=== PATIENT | female | born 1935 | race Caucasian/White ===

== ENCOUNTER → 2016-10-17 | Outpatient (CLI) | payer MEDICARE | END | disposition home or self-care (01) | LOC: PCVCCLINIC 14:24 | PROVIDERS: ATTEND Internal Medicine Cardiovascular Disease | DX: J90 Pleural effusion, not elsewhere classified (principal); K21.9 Gastro-esophageal reflux disease without esophagitis; R07.9 Chest pain, unspecified | CPT/HCPCS: 93005; G0463 ==

== ENCOUNTER → 2016-10-31 | Outpatient (CLI) | payer MEDICARE ==
[~2016-10-31] MED LIST: REGADENOSON 0.4 MG/5 ML DISP.SYRIN. IV ONE
== END | disposition home or self-care (01) ==
LOC: PCVCIMAG 08:27
PROVIDERS: ATTEND Internal Medicine Cardiovascular Disease
DX: I08.1 Rheumatic disorders of both mitral and tricuspid valves (principal)
CPT/HCPCS: 78452; 93017; 93306; A9500; J2785

== ENCOUNTER → 2018-09-08 | Outpatient (CLI) | payer MEDICARE | END | disposition home or self-care (01) | LOC: PCVCCLINIC 13:39 | PROVIDERS: ATTEND Internal Medicine Cardiovascular Disease | DX: I10 Essential (primary) hypertension (principal); R09.89 Other specified symptoms and signs involving the circulatory and respiratory systems; R60.9 Edema, unspecified; R42 Dizziness and giddiness; K21.9 Gastro-esophageal reflux disease without esophagitis; Z87.891 Personal history of nicotine dependence | CPT/HCPCS: 93005; G0463 ==

== ENCOUNTER → 2018-09-14 | Outpatient (CLI) | payer MEDICARE ==
--- NOTE | 2018-09-14 15:56 | PCVCIMAG ---
APPROVED REPORT Laterality: Bilateral Indications Bruit Doppler Spectral Velocity Analysis PSV / EDVPSV / EDV ECA (R) 120 / 16 cm/sECA (L) 65 / 8 cm/s dICA (R) 60 / 19 cm/sdICA (L) 60 / 19 cm/s Mac (R) 84 / 25 cm/smICA (L) 64 / 20 cm/s pICA (R) 81 / 20 cm/spICA (L) 97 / 19 cm/s Bulb (R) 86 / 20 cm/sBulb (L) 93 / 19 cm/s dCCA (R) 99 / 20 cm/sdCCA (L) 99 / 25 cm/s mCCA (R) 107 / 23 cm/smCCA (L) 108 / 24 cm/s Vert (R) 45 / 9 cm/sVert (L) 64 / 16 cm/s ICA/CCA 0.85ICA/CCA 0.98 Findings The right carotid bulb has minimal plaque. The right proximal internal carotid artery shows no significant stenosis. The right common carotid artery shows no significant stenosis. The right external carotid artery shows no significant stenosis. The left carotid bulb has mild plaque. The left proximal internal carotid artery shows no significant stenosis. The left common carotid artery shows no significant stenosis. The left external carotid artery shows no significant stenosis. Conclusion 1. No significant stenosis involving either carotid artery 2. Antegrade vertebral flow
--- NOTE | 2018-09-14 16:12 | PCVCIMAG ---
APPROVED REPORT Study performed: 09/14/2018 15:38:12 EXAM: Comprehensive 2D, Doppler, and color-flow Echocardiogram Patient Location: Echo lab Status: routine BSA: 1.69 HR: 74 bpmBP: 130/82 mmHg Rhythm: NSR Other Information Study Quality: Adequate Risk Factors: Cardiac Risk Factors: HTN Indications Dizziness and Vertigo mitral regurgitation 2D Dimensions IVSd: 10.07 (7-11mm) LVDd: 43.01 mm PWd: 8.97 (7-11mm) LVDs: 31.76 (25-40mm) Left Atrium: 43.08 (27-40mm) Aortic Root: 29.42 mm LV Single Plane 4CH: 57.89 % LV Single Plane 2CH: 61.29 % Biplane EF: 60.7 % Volumes Left Atrial Volume (Systole) Single Plane 4CH: 75.86 mLSingle Plane 2CH: 71.42 mL LA ESV Index: 46.00 mL/m2 Aortic Valve AoV Peak Richard.: 1.38 m/s AO Peak Gr.: 7.66 mmHgLVOT Max P.83 mmHg LVOT Max V: 1.10 m/s Mitral Valve E/A Ratio: 0.8 MV Decel. Time: 280.12 ms MV E Max Richard.: 0.60 m/s MV A Richard.: 0.77 m/s MV PHT: 81.23 ms IVRT: 110.73 ms Pulmonary Valve PV Peak Richard.: 0.84 m/sPV Peak Gr.: 2.80 mmHg Pulmonary Vein P Vein S: 0.25 m/sP Vein A: 0.29 m/s P Vein D: 0.44 m/sP Vein A Dur.: 121.1 msec P Vein S/D Ratio: 0.57 Tricuspid Valve TR Peak Richard.: 2.42 m/s TR Peak Gr.: 23.47 mmHg TV Vmax: 0.48 m/s Left Ventricle The left ventricle is normal size. There is normal LV segmental wall motion. There is normal left ventricular wall thickness. Left ventricular systolic function is normal. The left ventricular ejection fraction is within the normal range. LVEF is 60-65%. Grade I - abnormal relaxation pattern. Right Ventricle The right ventricle is normal size. The right ventricular systolic function is normal. Atria Left atrium is moderately dilated. The right atrium size is normal. Aortic Valve The aortic valve is normal in structure. No aortic regurgitation is present. There is no aortic valvular stenosis. Mitral Valve The mitral valve is normal in structure. Mild to moderate mitral regurgitation. No evidence of mitral valve stenosis. Tricuspid Valve The tricuspid valve is normal in structure. Mild tricuspid regurgitation with PAP of 30 mmHg. Pulmonic Valve The pulmonary valve is normal in structure. There is trace pulmonic valvular regurgitation. Great Vessels The aortic root is normal in size. IVC is normal in size and collapses >50% with inspiration. Pericardium There is no pericardial effusion. There is no pleural effusion. <Conclusion> The left ventricle is normal size. There is normal left ventricular wall thickness. Left ventricular systolic function is normal. Grade I - abnormal relaxation pattern. The right ventricle is normal size. Left atrium is moderately dilated. The aortic valve is normal in structure. Mild to moderate mitral regurgitation. Mild tricuspid regurgitation with PAP of 30 mmHg.
== END | disposition home or self-care (01) ==
LOC: PCVCIMAG 15:08
PROVIDERS: ATTEND Internal Medicine Cardiovascular Disease
DX: I08.1 Rheumatic disorders of both mitral and tricuspid valves (principal); I65.23 Occlusion and stenosis of bilateral carotid arteries; R09.89 Other specified symptoms and signs involving the circulatory and respiratory systems; R42 Dizziness and giddiness; I10 Essential (primary) hypertension; J90 Pleural effusion, not elsewhere classified
CPT/HCPCS: 93306; 93880